=== PATIENT | female | born 1995 | race Caucasian/White ===

== ENCOUNTER 2018-10-07 09:15 | Emergency (ER) | payer OTHER ==
[2018-10-07 09:36] VITALS: BP 134/63
--- NOTE | 2018-10-07 10:05 | UC ---
Nausea/Vomiting/Diarrhea HPI - HPI Summary HPI Summary: 22-year-old female presents with sudden onset of right upper quadrant pain this morning at 6:00 am. States pain is constant and severe. Associated with nausea but denies any vomiting or diarrhea at this time. Patient states that she has known gallstones and sludge but has never had issues with pain in the past. Denies fever, chills, chest pain, shortness of breath, dysuria, frequency , urgency, or hematuria. - History of Current Complaint Chief Complaint: UCAbdominalPain Stated Complaint: NAUSEA Time Seen by Provider: 10/07/18 09:54 Hx Obtained From: Patient Hx Last Menstrual Period: 08/12/18 Pain Intensity: 9 - Allergies/Home Medications Allergies/Adverse Reactions: Allergies Allergy/AdvReac Type Severity Reaction Status Date / Time No Known Allergies Allergy Verified 10/07/18 09:30 Home Medications: Home Medications NK [No Home Medications Reported] 10/07/18 [History Confirmed 10/07/18] PMH/Surg Hx/FS Hx/Imm Hx GI/ History: Gall Bladder Disease - Surgical History Surgical History: Yes Surgery Procedure, Year, and Place: 3 c sections, right wrist fx 2012, fx L5 2010 - Social History Occupation: Employed Full-time Lives: With Family Alcohol Use: None Substance Use Type: None Smoking Status (MU): Never Smoked Tobacco Review of Systems All Other Systems Reviewed And Are Negative: Yes Constitutional: Negative: Fever, Chills Respiratory: Positive: Negative Cardiovascular: Positive: Negative Gastrointestinal: Positive: Abdominal Pain, Nausea. Negative: Vomiting, Diarrhea Genitourinary: Negative: Dysuria, Hematuria, Frequency, Urgency, Vaginal/Penile Discharge, Abnormal Bleeding Musculoskeletal: Positive: Negative Neurological: Positive: Negative Is Patient Immunocompromised?: No Physical Exam - Summary Physical Exam Summary: GENERAL APPEARANCE: Alert and cooperative, obese female who appears to be uncomfortable holding her right upper quadrant. CARDIAC: Normal S1 and S2. No S3, S4 or murmurs. Rhythm is regular. There is no peripheral edema, cyanosis or pallor. Extremities are warm and well perfused. Capillary refill is less than 2 seconds. Peripheral pulses intact. LUNGS: Clear to auscultation without rales, rhonchi, wheezing or diminished breath sounds. ABDOMEN: Positive bowel sounds. Soft, nondistended. Tenderness with palpation in the RUQ over McBurney's point with guarding. No masses or hepatosplenomegally. No CVA tenderness. MUSKULOSKELETAL: ROM intact to all extremities. No joint erythema or tenderness. Normal muscular development. Normal gait. BACK: Examination of the spine reveals normal gait and posture, no spinal deformity or tenderness, decreased range of motion or muscular spasm. SKIN: Skin normal color, texture and turgor with no lesions or eruptions. Triage Information Reviewed: Yes Vital Signs: Initial Vital Signs Temp 98.3 F 10/07/18 09:31 Pulse 55 10/07/18 09:31 Resp 18 10/07/18 09:31 BP 134/63 10/07/18 09:31 Pulse Ox 100 10/07/18 09:31 Vital Signs Reviewed: Yes Naus/Vom/Diarrhea Course/Dx - Course Course Of Treatment: 22-year-old female presents with sudden onset of right upper quadrant pain this morning at 6:00 am. States pain is constant and severe. Associated with nausea but denies any vomiting or diarrhea at this time. Patient states that she has known gallstones and sludge but has never had issues with pain in the past. Denies fever, chills, chest pain, shortness of breath, dysuria, frequency , urgency, or hematuria. Afebrile. Vital signs stable. Patient appeared to be uncomfortable holding her right upper quadrant and had significant tenderness of the right upper quadrant with palpation over McBurney's point with some guarding and otherwise and remarkable exam. [id number] urinalysis was normal. Urine was negative. I reviewed these results with the patient. I discussed with the patient that with her history of known gallstones that I have a high degree of concern for possible cholecystitis. I offered to obtain an ultrasound at her facility but explained that are evaluation would be otherwise limited because of our inability to require urgent lab work. Patient was given the option of transferring to the emergency room for further evaluation which she is electing to do and to transfer via private vehicle. I discussed case with Dr. Heaton at the [facility] ED. - Differential Dx/Diagnosis Differential Diagnoses - Female: Pancreatitis, , Gall Bladder Disease, Esophagitis/Gastritis, Gerd, Gastroenteritis (Viral), Gastroenteritis (Bacterial ), Cholelithiasis, Cholecystitis Provider Diagnosis: Acute abdominal pain in right upper quadrant Condition At Discharge: Stable - Physician Notification/Consults Discussed Case/Management/Disposition Of Patient With: Dr. Katie Heaton Time Discussed With Above Provider: 10:17 Instructed by Provider To: MD Will See In ED Discharge ED - Sign-Out/Discharge Documenting (check all that apply): Patient Departure All imaging exams completed and their final reports reviewed: No Studies - Discharge Plan Condition: Stable Disposition: HOME-RECOMMEND TO ED Patient Education Materials: Abdominal Pain (ED) Referrals: Bekah Osullivan [Primary Care Provider] - Additional Instructions: Based on your history and exam I am concerned that you may be having an gall bladder attack and am recommending that you be further evaluated in the emergency room at this time. Go directly to the emergency room from here. Do not eat or drink anything until you have been evaluated. - Billing Disposition and Condition Condition: STABLE Disposition: Home-Recommend to ED - Attestation Statements Provider Attestation: I was available for consult. This patient was seen by the [facility]. The patient was not presented to, seen by, or examined by me. -Mahsa
== END 2018-10-07 10:19 | disposition home health service (06) ==
LOC: UCCORT 09:15
DX: R10.11 Right upper quadrant pain (principal); Z87.19 Personal history of other diseases of the digestive system
CPT/HCPCS: 81003; 84702; 99202; G0463